=== PATIENT | female | born 1960 | race Caucasian/White ===

== ENCOUNTER 2018-09-25 07:54 | Emergency (ER) | payer BC ==
[~2018-09-25] VITALS: Ht 175.3 cm; Wt 56.7 kg
[2018-09-25] MEDS ORDERED: DESCOVY 200-251 EACH PO (08:09)
[2018-09-25] MEDS ORDERED: PRILOSEC10 MG PO (08:09)
[2018-09-25] MEDS ORDERED: PREZCOBIX 8001 EACH PO (08:09)
[2018-09-25] MEDS ORDERED: ALORA1 EAC1 TD (08:10)
[2018-09-25] MEDS ORDERED: [UNRECOGNIZED DRUG - REMARK] (08:10)
== END 2018-09-25 10:52 | disposition home or self-care (01) ==
LOC: ER 07:54
DX: S22.32XA Fracture of one rib, left side, initial encounter for closed fracture (principal); W18.09XA Striking against other object with subsequent fall, initial encounter; Y93.89 Activity, other specified; Y92.59 Other trade areas as the place of occurrence of the external cause; Y99.8 Other external cause status